=== PATIENT | male | born 1945 | race Caucasian/White ===

== ENCOUNTER → 2018-01-10 | Outpatient (CLI) | payer OTHER | LOC: FIMAGING 10:16 | PROVIDERS: ATTEND Orthopaedic Surgery | DX: M17.12 Unilateral primary osteoarthritis, left knee (principal); M23.42 Loose body in knee, left knee; M16.12 Unilateral primary osteoarthritis, left hip ==

== ENCOUNTER 2018-01-13 09:15 | Observation (INO) | payer OTHER ==
--- NOTE | 2018-01-13 07:03 | PDHPUP ---
History & Physical Update H&P update statement: This history and physical update is based on an assessment of the patient which was completed after admission or registration (within 24 hours), but prior to the surgery/procedure. H&P update: H&P reviewed & patient examined, no change in patient's condition since H&P completed
[~2018-01-13 09:15] MED LIST: ROPIVACAINE 0.2% 80 MG, EPINEPHrine 0.2 MG, KETOROLAC TROMETHAMINE 30 MG in SYRINGE 0 ML IU ONE; TRANEXAMIC ACID 3,000 MG in NS (SYRINGE) 50 ML IRR ONE; TRANEXAMIC ACID 3,000 MG/50 ML BAG IRR ONE; VANCOMYCIN 1 GM VIAL ONE
[2018-01-13] MEDS ORDERED: ceFAZolin 2 GM/SWFI 2 GM/20 ML SYR IVP ONE (09:54)
[2018-01-13] MEDS ORDERED: FAMOTIDINE 20 MG TAB PO ONE (09:54)
[2018-01-13] MEDS ORDERED: DEXAMETHASONE 4 MG/ML VIAL IVP ONE (09:54)
[2018-01-13] MEDS ORDERED: ACETAMINOPHEN 325 MG TAB PO ONE (09:54)
[2018-01-13] MEDS ORDERED: LIDOCAINE 1% 2 ML INJ ID PRN (09:55)
[2018-01-13] MEDS ORDERED: LR 1,000 ML IV ONE (09:55)
[2018-01-13] MEDS ORDERED: MIDAZOLAM 2 MG/2 ML VIAL ONE (10:32)
[2018-01-13] MEDS ORDERED: MIDAZOLAM 2 MG/2 ML VIAL IVP ONE (10:36)
--- NOTE | 2018-01-13 10:38 | PDANEPAE ---
ANE History of Present Illness L knee DJD s/f TKA-leighann ANE Past Medical History - Cardiovascular History Hx Hypertension: No Hx Arrhythmias: No Hx Chest Pain: No Hx Coronary Artery / Peripheral Vascular Disease: No Hx CHF / Valvular Disease: No Hx Palpitations: No - Pulmonary History Hx COPD: No Hx Asthma/Reactive Airway Disease: No Hx Recent Upper Respiratory Infection: No Hx Oxygen in Use at Home: No Hx Sleep Apnea: No Sleep Apnea Screening Result - Last Documented: Negative - Neurologic History Hx Cerebrovascular Accident: No Hx Seizures: No Hx Dementia: No - Endocrine History Hx Diabetes: No - Renal History Hx Renal Disorders: No - Liver History Hx Hepatic Disorders: No - Neurological & Psychiatric Hx Hx Neurological and Psychiatric Disorders: Yes Neurological / Psychiatric History Comment: anxiety - Cancer History Hx Cancer: No - Congenital Disorder History Hx Congenital Disorders: No - GI History Hx Gastrointestinal Disorders: No - Other Health History Other Health History: upper right bicuspid. lower right bicuspid - Chronic Pain History Chronic Pain: No (lower left side of back) - Surgical History Prior Surgeries: gastric sleeve 2014. trigger finger onleft hand 2017 ANE Review of Systems Review of Systems: - Exercise capacity METS (RN): 4 METS ANE Patient History - Allergies Allergies/Adverse Reactions: No Known Allergies Allergy (Verified 12/19/17 11:30) - Home Medications Home medications: home medication list seen and reviewed Home Medications: Cholecalciferol Vit D3 [Vitamin D3 (*)] 5,000 units PO DAILY 12/19/17 [Last Taken 01/06/18] Herbals/Supplements -Info Only 1 ea PO DAILY 12/19/17 [Last Taken 01/06/18] lamOTRIGine [Lamotrigine] 100 mg PO HS 12/19/17 [Last Taken 01/12/18] lamOTRIGine [Lamotrigine] 200 mg PO DAILY 12/19/17 [Last Taken 01/13/18 06:00] traZODone [traZODONE 50MG (*)] 50 mg PO HS PRN 12/19/17 [Last Taken 01/12/18] Omeprazole 20 mg PO BID PRN 01/13/18 [Last Taken Unknown] Wellbutrin 150mg SR (*) 75 mg PO DAILY 01/13/18 [Last Taken 01/13/18 06:00] - NPO status NPO Since - Liquids (Date): 01/13/18 NPO Since - Liquids (Time): 05:55 NPO Since - Solids (Date): 01/12/18 NPO Since - Solids (Time): 22:00 - Anes Hx Anes Hx: no prior problems - Smoking Hx Smoking Status: Former smoker - Alcohol Use Alcohol Use: None - Family Anes Hx Family Anes Hx: none Family Hx Anesthesia Complications: none ANE Labs/Vital Signs - Vital Signs Blood Pressure: 124/76 Heart Rate: 55 Respiratory Rate: 16 O2 Sat (%): 93 Height: 179.07 cm Weight: 87.09 kg ANE Physical Exam - Airway Mallampati Score: Class 2 Mouth exam: normal dental/mouth exam - Pulmonary Pulmonary: no respiratory distress - Cardiovascular Cardiovascular: regular rate and rhythym - ASA Status ASA Status: II ANE Anesthesia Plan Anesthesia Plan: spinal Regional Anesthesia: adductor canal FNB
[2018-01-13] MEDS ORDERED: PROPOFOL/EMULSION 500 MG/50 ML BOTTLE IV ONE ×2 (10:46→11:37)
[2018-01-13] MEDS ORDERED: fentaNYL 100 MCG/2 ML INJ ONE (10:46)
[2018-01-13] MEDS ORDERED: LIDOCAINE 2% JELLY 5 ML TUBE ONE (11:00)
[2018-01-13] MEDS ORDERED: LR 500 ML IV PRN (11:56)
[2018-01-13] MEDS ORDERED: ONDANSETRON 4 MG/2 ML VIAL IVP PRN ×2 (11:56→12:12)
[2018-01-13] MEDS ORDERED: OXYCODONE/APAP 5/325 TAB PO PRN (11:56)
[2018-01-13] MEDS ORDERED: fentaNYL 100 MCG/2 ML INJ IVP PRN (11:56)
[2018-01-13] MEDS ORDERED: NALOXONE HCL 0.4 MG/ML INJ IVP PRN (11:56)
[2018-01-13] MEDS ORDERED: HYDROCODONE/APAP 5/325 TAB PO PRN (11:56)
[2018-01-13] MEDS ORDERED: PHENYLEPHRINE HCL 100 MCG/ML SYR IVP PRN (11:56)
[2018-01-13] MEDS ORDERED: PROMETHAZINE HCL 25 MG/ML INJ IVP PRN ×2 (11:56→12:12)
[2018-01-13] MEDS ORDERED: ALBUTEROL 3 ML DEYVIAL IH PRN (11:56)
[2018-01-13] MEDS ORDERED: MEPERIDINE 25 MG/ML SYR IVP PRN (11:56)
[2018-01-13] MEDS ORDERED: LABETALOL HCL 5 MG/ML 20 ML MDV IVP PRN (11:56)
[2018-01-13] MEDS ORDERED: METOCLOPRAMIDE 10 MG/2 ML VIAL IVP PRN ×2 (11:56→12:12)
[2018-01-13] MEDS ORDERED: DEXAMETHASONE 4 MG/ML VIAL IVP PRN (11:56)
[2018-01-13] MEDS ORDERED: ACETAMINOPHEN 500 MG TAB PO PRN (11:56)
[2018-01-13] MEDS ORDERED: DEXAMETHASONE 4 MG/ML VIAL ONE ×2 (11:58)
[2018-01-13] MEDS ORDERED: PROMETHAZINE HCL 25 MG SUPPR PR PRN (12:12)
[2018-01-13] MEDS ORDERED: CYCLOBENZAPRINE 10 MG TAB PO PRN (12:12)
[2018-01-13] MEDS ORDERED: MAGNESIUM HYDROXIDE 30 ML UDCUP PO PRN (12:12)
[2018-01-13] MEDS ORDERED: DIPHENOXYLATE/ATROPINE LOMOTIL 1 TAB PO PRN (12:12)
[2018-01-13] MEDS ORDERED: diphenhydrAMINE 25 MG CAP PO PRN (12:12)
[2018-01-13] MEDS ORDERED: POLYETHYLENE GLYCOL 3350 17 GM PKT PO PRN (12:12)
[2018-01-13] MEDS ORDERED: BISACODYL 10 MG SUPP PR PRN (12:12)
[2018-01-13] MEDS ORDERED: LACTULOSE 20 GM/30 ML UDCUP PO PRN (12:12)
[2018-01-13] MEDS ORDERED: TEMAZEPAM 15 MG CAP PO PRN (12:12)
[2018-01-13] MEDS ORDERED: ONDANSETRON DISINTEGRATING 4 MG TAB PO PRN (12:12)
--- NOTE | 2018-01-13 12:12 | POSTOPPROG ---
Post Op Note Date of Operation: 01/13/18 Surgeon: Grace Rivas Rejogger: osman rivas Anesthesiologist: dr. thakkar Anesthesia: Spinal, Other (Specify) (adductor canal block) Pre-op Diagnosis: left knee OA Post-op Diagnosis: same Indication: left knee pain due to OA that failed conservative measures Procedure: L med MPL robot assisted Findings: severe knee OA Inf/Abcess present in the surg proc area at time of surgery?: No EBL: 50-100
[2018-01-13] MEDS ORDERED: LR 1,000 ML IV SCH (12:30)
--- NOTE | 2018-01-13 13:12 | POSTANESTH ---
Post Anesthetic Evaluation Cardiovascular Status: Normal, Stable Respiratory Status: Normal, Stable Level of Consciousness/Mental Status: Can Participate in Eval Pain Control: Adequate, Prn Tx Ordered Nausea/Vomiting Control: Adequate, Prn Tx Ordered Complications Possibly Related to Anesthesia: None Noted
[2018-01-13] MEDS ORDERED: traZODone 50 MG TAB PO PRN (15:15)
[2018-01-13] MEDS ORDERED: NON-FORMULARY NEW DRUG (Omeprazole [Omeprazole] 20 MG) PO PRN (15:15)
[2018-01-13] MEDS: ACETAMINOPHEN 325 MG TAB PO SCH (17:35)
[2018-01-13] MEDS: ceFAZolin 2 GM/SWFI 2 GM/20 ML SYR IVP SCH (17:36)
[2018-01-13] MEDS ORDERED: ceFAZolin 2 GM/DEXTROSE 100 ML IV SCH (18:30)
[2018-01-13 20:16] VITALS: RESP 16
[2018-01-13] MEDS: SENNOSIDES/DOCUSATE SODIUM TAB PO SCH (20:43)
[2018-01-13] MEDS: ASPIRIN 81 MG CHEWABLE TAB PO SCH (20:44)
[2018-01-13] MEDS: oxyCODONE IR 5 MG TAB PO PRN (20:44)
[2018-01-13] MEDS: FAMOTIDINE 20 MG TAB PO SCH (20:44)
[2018-01-13] MEDS ORDERED: NON-FORMULARY NEW DRUG (Oxcarbazepine [Trileptal] 150 MG) PO SCH (21:00)
[2018-01-13] MEDS ORDERED: OXcarbazepine 300 MG TAB PO SCH (21:00)
[2018-01-13] MEDS ORDERED: lamoTRIgine 100 MG TAB PO SCH (21:00)
[2018-01-13] MEDS ORDERED: HYDROXYZINE PAMOATE 25 MG PO SCH (21:00)
[2018-01-14] MEDS: ACETAMINOPHEN 325 MG TAB PO SCH ×2 (00:27→05:50)
[2018-01-14] MEDS: oxyCODONE IR 5 MG TAB PO PRN ×3 (00:27→08:54)
--- NOTE | 2018-01-14 01:55 | GOP ---
[f rep st] OPERATIVE REPORT DATE OF OPERATION: 01/13/2018 SURGEON: Shante Sheppard MD [employer] INSPECTOR: Oneida Sheppard PA-C ANESTHESIA: Spinal. PREOPERATIVE DIAGNOSIS: Left knee osteoarthritis. POSTOPERATIVE DIAGNOSIS: Left knee osteoarthritis. PROCEDURE PERFORMED: Left total knee replacement with computer navigation, robotic assist, FINDINGS: ESTIMATED BLOOD LOSS: 30 cc. INDICATIONS: This is a 72-year-old male with progressive pain of the left knee unresponsive to conservative care. Risks and benefits of surgical intervention were explained in detail. DESCRIPTION OF PROCEDURE: The patient was brought to the operating room and placed on the table in supine position. Spinal anesthesia was induced without difficulty. A pneumatic tourniquet was applied about the left proximal thigh and the leg was prepped and draped in sterile fashion. Attention was turned first to the distal aspect of the left femur. At 3 cm proximal to the lateral rise of the femur, 2 percutaneous half pins were placed for fixation of the femoral array. In a similar fashion, 2 pins were placed anterolateral on the tibia for fixation of the tibial array. External land marking and registration of the hip center were performed without difficulty. After exsanguination by elevation, the tourniquet was inflated to 250 mmHg. Incision was made from the tibial tuberosity to the superior pole of the patella. Dissection was carried out through the subcutaneous tissue to the deep fascia using [employer] electrocautery for hemostasis. Medial parapatellar arthrotomy was carried out to the superior pole of the patella. The medial collateral ligament was elevated and the infrapatellar fat pad was resected. Internal femoral and tibial registration was carried out without difficulty and the femoral and tibial checkpoints were placed and verified for accuracy. Attention was turned to the femur. The foot print for the size 5 femoral component was cut with the 6 mm bur using the [employer] robotic system and verified for accuracy against the CT based plan. The hole was cut for the femoral post. In a similar fashion, the 6 mm bur was used to cut the foot print for the size 6 tibial component using the [employer] system and verified for accuracy against the CT based plan. Attention was turned to the posterior aspect of the knee and remnants of the medial meniscus were excised. The posterior capsule was injected with ropivacaine, epinephrine and Toradol. A size 6 x 8 mm polyethylene tibial tray was positioned. Trial reduction was carried out and there was excellent range of motion, alignment and stability using the size 5 femoral component and the size 6 tibial component with the 6 x 8 mm polyethylene. All trials were then removed. The joint was thoroughly irrigated and carefully dried. One package of cement and 1 gram of vancomycin were mixed in the vacuum mixer and placed on the fixation surfaces of all components. The components were implanted and all excess cement was thoroughly removed. Implant placement was verified against the CT view plan and found to be excellent. The tourniquet was deflated and all bleeders were coagulated. The wound was thoroughly irrigated and closed using interrupted sutures of 2-0 Vicryl for the joint capsule. The subcu was closed with 3-0 Vicryl and the skin with 4-0 Monocryl. Dermabond and Steri-Strips were applied, followed by a compressive dressing. The patient was then moved from the operating room to the recovery room in good condition, having tolerated the procedure well. PATHOLOGY: Severe medial compartment osteoarthritis. CASE CLASSIFICATION: Clean. /[id number]/MODL MTDD
[2018-01-14] MEDS: ceFAZolin 2 GM/SWFI 2 GM/20 ML SYR IVP SCH (02:14)
[2018-01-14 07:48] VITALS: BP 129/91; PULSE 72; TEMP 98.6; O2SAT 93
[2018-01-14] MEDS: ASPIRIN 81 MG CHEWABLE TAB PO SCH (08:49)
[2018-01-14] MEDS: SENNOSIDES/DOCUSATE SODIUM TAB PO SCH (08:49)
[2018-01-14] MEDS: FAMOTIDINE 20 MG TAB PO SCH (08:50)
[2018-01-14] MEDS ORDERED: lamoTRIgine 100 MG TAB PO SCH (09:00)
[2018-01-14] MEDS ORDERED: NON-FORMULARY NEW DRUG (Lamotrigine [Lamotrigine] 200 MG) PO SCH (09:00)
[2018-01-14] MEDS ORDERED: buPROPion XL 150 MG TAB PO SCH (09:00)
[2018-01-14] MEDS ORDERED: PANTOPRAZOLE SODIUM 40 MG TAB PO SCH (09:00)
--- NOTE | 2018-01-14 10:23 | SOAPPROG ---
SOAP Progress Note Assessment/Plan: Assessment: Patient is doing well POD 1 s/p L med mpl pain is well controlled on oral pain meds anemia: level is expected initially postop. asymptomatic VTE ppx: recommend ASA 81 mg BID for 4 weeks. cont VICKI sainz and SCDs D/c planning: d/c to home today, pending release from PT Plan: 01/14/18 10:23 Objective: Vital Signs Temp Pulse Resp BP Pulse Ox 37.0 C 72 16 129/91 H 93 01/14/18 07:48 01/14/18 07:48 01/14/18 07:48 01/14/18 07:48 01/14/18 07:48 Laboratory Results 01/14/18 04:49 01/13/18 01/14/18 01/15/18 05:59 05:59 05:59 Intake Total 3030 200 Output Total 2024 Balance 1005 200 ICD10 Worksheet Patient Problems: Problems Problem Status Onset Primary localized osteoarthritis of left knee Acute
--- NOTE | 2018-01-18 20:50 | GDS ---
[f rep st] DISCHARGE SUMMARY ADMISSION DIAGNOSIS: Left knee osteoarthritis. DISCHARGE DIAGNOSIS: Left knee osteoarthritis. PROCEDURE: Left partial knee arthroplasty, medial compartment, robot assisted. VTE PROPHYLAXIS: Recommend aspirin 81 mg twice daily for 4 weeks. BRIEF DESCRIPTION OF HOSPITAL STAY: Patient was admitted for an elective joint arthroplasty. The pa delano tolerated the procedure well and has passed physical therapy. The patient was given appropriat e antibiotic prophylaxis and venous thromboembolism prophylaxis. The patient's pain was well control led on oral pain medication, patient was holding down food, and had urinated. Decision was made to d ischarge the patient. The patient was given post-operative prescriptions pre-operatively. PLAN: Follow up as scheduled with Dr. Sheppard's office January 29 at 9:30 a.m. /[id number]/MODL
== END 2018-01-14 11:10 | disposition home or self-care (01) ==
LOC: INTOOBSV 09:17 → F3N 09:17
PROVIDERS: ADMIT Orthopaedic Surgery; ATTEND Orthopaedic Surgery
PROC: 8E0W0CZ Robotic Assisted Procedure of Trunk Region, Open Approach (ICD-10-PCS; principal; 2018-01-13 11:15)
PROC: 0SRD0J9 Replacement of Left Knee Joint with Synthetic Substitute, Cemented, Open Approach (ICD-10-PCS; principal; 2018-01-13 11:15)
DX: M17.12 Unilateral primary osteoarthritis, left knee (principal); F41.9 Anxiety disorder, unspecified; Z87.891 Personal history of nicotine dependence
CPT/HCPCS: 20985; 27447; 73560; 97161; 97165; C1713; C1776; G8978; G8979; G8980; G8987; G8988; G8989; J0171; J0690; J1100; J1885; J2250; J2704; J2795; J3010; J3370; J2370